=== PATIENT | female | born 1980 | race Caucasian/White ===

== ENCOUNTER 2016-04-17 06:56 | Emergency (ER) | payer OTHER ==
[2016-04-17 07:20] VITALS: TEMP 98; BMI 25.6
--- NOTE | 2016-04-17 07:53 | PDOC ---
History of Present Illness - General Chief Complaint: Injury Stated Complaint: INJURY Time Seen by Provider: 04/17/16 07:27 - History of Present Illness Initial Comments: 04/17/16 07:46 CC: fall HPI: 36 yo F with hx of migraines presents to fast track s/p fall two days ago. Patient states she was getting out of her car when she slipped on ice and hit her head. She is unsure what she hit her head on but denies any LOC. Yesterday she started having a headache and around 4 am this morning she started vomiting. She has had 3-4 episodes of vomiting since this morning and reports that she did feel dizzy prior to vomiting. PMH: migraines PSH: Social hx: Current smoker, 20 cig daily. Denies alcohol, illicit drug use. REVIEW OF SYSTEMS General/Constitutional: Denies fever or chills. Denies weakness. HEENT: "A little blurry vision right after the fall, none now". Denies ear pain or discharge. Denies sore throat. Cardiovascular: Denies chest pain or shortness of breath. Respiratory: Denies cough, wheezing, or hemoptysis. Gastrointestinal: Vomiting this morning. Denies loss of bowel function. Denies diarrhea. Genitourinary: Denies loss of bladder function. Denies dysuria, frequency, or change in urination. Musculoskeletal: Denies joint or muscle swelling or pain. Denies neck or back pain. Skin and breasts: Denies rash or bruising. Neurologic: Headache and dizziness yesterday. Denies loss of consciousness, or loss of sensation. Psychiatric: Denies depression or anxiety. PHYSICAL EXAM General Appearance: Well-appearing, appropriately dressed. No apparent distress , no intoxication. HEENT: No hemotympanum. No Perez's sign or raccoon eyes. No changes in vision. EOMI, PERRLA, normal ENT inspection, normal voice, TMs normal, pharynx normal. No conjunctival pallor. No photophobia, scleral icterus. Neck: Full ROM to neck with no tenderness on palpation. No midline point tenderness to cervical spine. Supple. Trachea midline. No tenderness, rigidity. Respiratory/Chest: Lungs CTAB. No shortness of breath, chest tenderness, respiratory distress, accessory muscle use. No crackles, rales, rhonchi, stridor , wheezing, dullness Cardiovascular: RRR. S1, S2. No JVD, murmur, bradycardia, tachycardia. Gastrointestinal/Abdominal: Normal bowel sounds. Abdomen soft, non-distended. No tenderness or rebound tenderness. No organomegaly, pulsatile mass, guarding , hernia, hepatomegaly, splenomegaly. Lymphatic: No adenopathy, tenderness. Musculoskeletal/Extremities: Normal inspection. FROM of all extremities, normal capillary refill. Pelvis Stable. No CVA tenderness. No tenderness to extremities, pedal edema, swelling, erythema or deformity. Integumentary: No bruises or abrasions. Appropriate color, dry, warm. No cyanosis, erythema, jaundice or rash Neurologic: computed tomography technician II-XII intact. Fully oriented, alert. Appropriate mood/ affect. Motor strength 5/5. No appreciable EOM palsy, facial droop or sensory deficit. Gait normal. A&Ox3, follow commands, respond appropriately CN2-12: conjugate gaze, pupil round, equal and reactive to light. Visual field full to confrontation. EOMI without nystagmus, pursuit is smooth without saccade. Facial sensation and muscle activation intact bilaterally. Hearing intact bilaterally. Palate elevate symmetrically. Shoulder shrug and neck turn full strength. Tongue protrude midline. Motor: UE and LE strength 5/5 throughout bilaterally. Muscle tone and bulk normal. Sensory: pin prick & temp : BUE & BLE intact and equal bilaterally Vibration & propioception: intact bilaterally at 1st MCP and MTP joints. no sensory level noted on trunk Cerebellar: Rapid-alternating movement with regular rhythm without bradykinesia. [id number] and [id number] intact bilaterally without dysmetria or overshoot. Gait narrow based. No shuffling. Full hip flexion and knee flexion. Negative Romberg No involuntary movement noted. No pronator drift. No clonus. Past History - Past Medical History Allergies/Adverse Reactions: Allergies Allergy/AdvReac Type Severity Reaction Status Date / Time No Known Allergies Allergy Verified 04/17/16 07:14 Home Medications: Ambulatory Orders Ondansetron [Zofran *Odt*] 8 mg SL TID PRN #15 od.tablet 04/17/16 Other medical history: migraines - Psycho/Social/Smoking Cessation Hx Suicidal Ideation: No Smoking History: Current every day smoker Number of Cigarettes Smoked Daily: 20 Information on smoking cessation initiated: No Hx Alcohol Use: No Drug/Substance Use Hx: No Substance Use Type: None *Physical Exam - Vital Signs Last Vital Signs Temp Pulse Resp BP Pulse Ox 98.0 F 60 14 117/68 98 04/17/16 07:14 04/17/16 07:14 04/17/16 07:14 04/17/16 07:14 04/17/16 07:14 Medical Decision Making - Medical Decision Making 04/17/16 07:54 36 yo F with hx of migraines presents to ED with headache/vomiting s/p fall two days ago. -urine preg -head CT r/o bleed Head CT negative. -Zofran 8 mg ODT PRN nausea/vomiting. Advised patient to take medication as prescribed and follow up with neurology next week. Advised patient of signs and symptoms for return to ED. Patient verbalized understanding and agrees to plan. 04/17/16 09:29 *DC/Admit/Observation/Transfer Diagnosis at time of Disposition: Post concussive syndrome - Discharge Dispostion Disposition: HOME Condition at time of disposition: Stable Admit: No - Prescriptions Prescriptions: Ondansetron [Zofran *Odt*] 8 mg SL TID PRN #15 od.tablet PRN Reason: Nausea And/Or Vomiting - Referrals Referrals: Jovon Melvin MD [Primary Care Provider] - [facility] [Provider Group] - Patient Instructions Printed Discharge Instructions: DI for Postconcussion Syndrome Additional Instructions: Please take medication as prescribed and follow up with neurology next week. As discussed, please return to the emergency department if you experience weakness to one side, change in speech, vision, or gait, persistent vomiting, or any ANY new, persistent or worsening symptoms. - Post Discharge Activity Work/School Note: Back to Work
--- NOTE | 2016-04-17 09:11 | PDOC ---
*Physical Exam - Vital Signs Last Vital Signs Temp Pulse Resp BP Pulse Ox 98.0 F 60 14 117/68 98 04/17/16 07:14 04/17/16 07:14 04/17/16 07:14 04/17/16 07:14 04/17/16 07:14 - Physical Exam Comments: 04/17/16 09:11 The patient was examined by [JACKLYN cevallos] under my direct supervision. I personally evaluated the patient. I concur with the above findings and the plan of care. ED Treatment Course - ADDITIONAL ORDERS Additional order review: Laboratory Results 04/17/16 07:59 Urine HCG, Qual Negative *DC/Admit/Observation/Transfer Diagnosis at time of Disposition: Post concussive syndrome - Prescriptions Prescriptions: Ondansetron [Zofran *Odt*] 8 mg SL TID PRN #15 od.tablet PRN Reason: Nausea And/Or Vomiting - Referrals Referrals: [facility] [Provider Group] Jovon Melvin MD [Primary Care Provider] - - Patient Instructions Printed Discharge Instructions: DI for Postconcussion Syndrome Additional Instructions: Please take medication as prescribed and follow up with neurology next week. As discussed, please return to the emergency department if you experience weakness to one side, change in speech, vision, or gait, persistent vomiting, or any ANY new, persistent or worsening symptoms. - Post Discharge Activity Work/School Note: Back to Work
[2016-04-17] MEDS ORDERED: ONDANSETRON *ODT* 4 MG TABLET SL ONE (09:32)
[2016-04-17] MEDS ORDERED: ONDANSETRON *ODT* 4 MG TABLET ONE (10:12)
[2016-04-17 10:18] VITALS: BP 121/70; PULSE 65
== END 2016-04-17 10:17 | disposition home or self-care (01) ==
LOC: JER 06:56
DX: F07.81 Postconcussional syndrome (principal); G44.319 Acute post-traumatic headache, not intractable; W00.2XXA Other fall from one level to another due to ice and snow, initial encounter; Y93.89 Activity, other specified; Y92.89 Other specified places as the place of occurrence of the external cause; F17.210 Nicotine dependence, cigarettes, uncomplicated
CPT/HCPCS: 70450-TC; 84703; 99283-25